=== PATIENT | female | born 1980 | race Caucasian/White ===

== ENCOUNTER 2020-11-01 01:49 | Emergency (ER) | payer OTHER ==
[2020-11-01 01:57] VITALS: TEMP 98.4; BMI 37.8
[2020-11-01] MEDS ORDERED: DEXAMETHASONE SOD PHOSPHATE 10 MG/1 ML VIAL ONE (02:00)
[2020-11-01] MEDS ORDERED: IPRATROPIUM BR 0.02% 0.5 MG/2.5 ML VIAL.NEB. NEB ONE ×2 (03:23→03:34)
[2020-11-01] MEDS ORDERED: ALBUTEROL SO4 HFA INHALER IH ONE ×2 (03:24→03:34)
[2020-11-01 03:53] VITALS: BP 117/75; PULSE 100
== END 2020-11-01 04:19 | disposition home or self-care (01) ==
LOC: JER 01:49
PROC: 3E0F7GC Introduction of Other Therapeutic Substance into Respiratory Tract, Via Natural or Artificial Opening (ICD-10-PCS; principal; 2020-11-01)
DX: J45.909 Unspecified asthma, uncomplicated (principal)
CPT/HCPCS: 71045-TC-FY; 99283-25